=== PATIENT | female | born 1990 | race African-American/Black ===

== ENCOUNTER 2020-12-19 11:48 | Inpatient (IN) ==
[2020-12-19] MEDS ORDERED: ONDANSETRON 4 MG/2 ML VIAL IV PRN (17:06)
[2020-12-19] MEDS ORDERED: ALBUTEROL 2.5 MG/3 ML NEB RESP TX PRN (17:06)
[2020-12-19] MEDS ORDERED: diphenhydrAMINE CAP 25 MG CAPSULE PO PRN (17:27)
[2020-12-19] MEDS ORDERED: CETIRIZINE 10 MG TABLET PO PRN (17:32)
[2020-12-19 17:59] LABS: Basophils % 0.1 % (0.0-0.8); Hematocrit 36.8 VOL% (35.7-47.0); Hemoglobin 11.7 GM/DL (12.0-16.0); Immature Granulocytes % 0.3 %; Immature Granulocytes Absolute 0.03 #; Lymphocytes # 0.6 10*3/uL (1.4-4.0); Lymphocytes % 6.3 % (21.3-54.2); Mean Corpuscular HGB Conc 31.8 GM/DL (32-36); Mean Corpuscular Volume 88.2 FL (87-102); Mean Platelet Volume 11.9 FL (9.6-12.0); Monocytes % 0.5 % (1.7-12.7); Neutrophils % 92.8 % (38.7-73.9); Platelet Count 228 T/CUMM (130-400); Red Blood Count 4.17 MC/CUMM (3.8-5.5); Red Cell Distribution Width 15.6 % (9.3-17.3); White Blood Count 9.1 T/CUMM (4-12)
[2020-12-19 18:16] LABS: Alanine Aminotransferase 15 U/L (13-56); Albumin 3.7 G/DL (3.4-5.0); Alkaline Phosphatase 52 U/L (45-117); Aspartate Amino Transferase 12 U/L (0-37); Bilirubin,Total < 0.39 MG/DL (0.2-1.0); Blood Urea Nitrogen 10 MG/DL (7-18); Carbon Dioxide 25 MMOL/L (21-32); Estimated Glom Filtration Rate 100 ML/MIN; Glucose 129 MG/DL (74-106); Osmolality,Calculated 279.4 MOS/KG (273-304); Sodium 140 MMOL/L (136-145); Total Protein 7.6 G/DL (6.4-8.2)
[2020-12-19] MEDS ORDERED: ACETAMINOPHEN 325 MG TABLET PO PRN (19:36)
[2020-12-19] MEDS ORDERED: PHENOL 1.4% THROAT SPRAY 177 ML BOTTLE PO PRN (19:36)
[2020-12-19 21:30] LABS: Lymphocytes 10 % (20-55); Segmented Neutrophils 90 % (50-85); Total Cells Counted 100
[2020-12-19 21:31] LABS: Platelet Estimate Normal
[2020-12-19] MEDS: methylPREDNISolone SOD SUC 40 MG/1 ML VIAL IV SCH (21:31)
[2020-12-19] MEDS: FAMOTIDINE 20 MG TABLET PO SCH (21:31)
[2020-12-19] MEDS: ALBUTEROL/IPRATROPIUM 3 ML NEB RESP TX SCH (23:03)
[2020-12-20] MEDS: ALBUTEROL/IPRATROPIUM 3 ML NEB RESP TX SCH ×3 (01:22→13:07)
[2020-12-20 05:35] LABS: Albumin 3.7 G/DL (3.4-5.0); Bilirubin,Total 0.6 MG/DL (0.2-1.0); Calcium 9.5 MG/DL (8.5-10.1); Osmolality,Calculated 277.5 MOS/KG (273-304); Potassium 4.2 MMOL/L (3.5-5.1); Total Protein 7.7 G/DL (6.4-8.2)
[2020-12-20] MEDS: methylPREDNISolone SOD SUC 40 MG/1 ML VIAL IV SCH (08:16)
[2020-12-20] MEDS: FAMOTIDINE 20 MG TABLET PO SCH ×2 (08:16→21:47)
[2020-12-20] MEDS ORDERED: ALBUTEROL 2.5 MG/3 ML NEB RESP TX PRN (14:33)
[2020-12-20] MEDS: ALBUTEROL 1.25 MG/3 ML NEB RESP TX SCH ×2 (20:29→21:21)
[2020-12-20] MEDS: predniSONE 20 MG TABLET PO SCH (21:47)
[2020-12-21] MEDS ORDERED: guaiFENesin 200 MG/10 ML UDCUP PO PRN (00:05)
[2020-12-21] MEDS: ALBUTEROL 1.25 MG/3 ML NEB RESP TX SCH ×3 (00:57→12:55)
[2020-12-21 05:01] LABS: Hematocrit 33.3 VOL% (35.7-47.0); Hemoglobin 10.5 GM/DL (12.0-16.0); Immature Granulocytes % 0.4 %; Immature Granulocytes Absolute 0.04 #; Lymphocytes % 10.6 % (21.3-54.2); Mean Corpuscular HGB Conc 31.5 GM/DL (32-36); Mean Corpuscular Volume 87.6 FL (87-102); Mean Platelet Volume 12.2 FL (9.6-12.0); Monocytes % 4.6 % (1.7-12.7); Neutrophils % 84.4 % (38.7-73.9); Platelet Count 247 T/CUMM (130-400); Red Cell Distribution Width 15.9 % (9.3-17.3); White Blood Count 9.5 T/CUMM (4-12)
[2020-12-21 05:21] LABS: Calcium 9.2 MG/DL (8.5-10.1); Hypochromasia 1+; Microcytosis 1+; Osmolality,Calculated 272.8 MOS/KG (273-304); Platelet Estimate Normal; Potassium 4.1 MMOL/L (3.5-5.1)
[2020-12-21] MEDS: FAMOTIDINE 20 MG TABLET PO SCH (09:58)
[2020-12-21] MEDS: predniSONE 20 MG TABLET PO SCH (09:58)
[2020-12-21 12:46] VITALS: BP 132/77
== END 2020-12-21 13:31 | disposition home or self-care (01) | DRG 203 ==
LOC: N.ICU 16:42 → SUATTDRO 16:42 → N.4E 12-20 18:09
PROVIDERS: ADMIT Internal Medicine; ATTEND Internal Medicine